=== PATIENT | male | born 1970 | race Caucasian/White ===

== ENCOUNTER 2017-05-05 10:49 | Emergency (ER) | payer MEDICAID, OTHER ==
[~2017-05-05] VITALS: Ht 175.3 cm; Wt 84.0 kg
[~2017-05-05 10:49] MED LIST: CEPH-357 PO; CEPH500C5 PO; CYCL-1 PO; DOXY100C76 PO; ZOF4T PO
[2017-05-05] MEDS ORDERED: NICO-687 TOP (12:12)
[2017-05-05] MEDS ORDERED: GUAI600T45 PO (12:12)
[2017-05-05] MEDS ORDERED: AZIT-57 PO (12:12)
[2017-05-05 12:22] VITALS: BP 140/90
== END 2017-05-05 12:19 | disposition home or self-care (01) ==
LOC: ER 10:50
DX: J04.0 Acute laryngitis (principal); F17.210 Nicotine dependence, cigarettes, uncomplicated; F12.10 Cannabis abuse, uncomplicated; G89.29 Other chronic pain; Z71.6 Tobacco abuse counseling; Z79.899 Other long term (current) drug therapy
CPT/HCPCS: 99283; 99406

== ENCOUNTER 2017-11-21 20:44 | Emergency (ER) | payer MEDICAID ==
[~2017-11-21] VITALS: Ht 175.3 cm; Wt 73.0 kg
[~2017-11-21 20:44] MED LIST changes: -CEPH500C5 PO; +GUAI600T45 PO
[2017-11-21] MEDS ORDERED: LORazepam 2 mg/ml vial IV ONE (21:05)
[2017-11-21 22:15] VITALS: BP 129/80
[2017-11-21] MEDS ORDERED: LORA-269 PO (22:25)
== END 2017-11-21 22:35 | disposition home or self-care (01) ==
LOC: ER 20:45
DX: F41.0 Panic disorder [episodic paroxysmal anxiety] (principal); F12.10 Cannabis abuse, uncomplicated
CPT/HCPCS: 70450; 93005; 96374; 99284; J2060

== ENCOUNTER 2019-10-07 18:25 | Emergency (ER) | payer MEDICAID ==
[~2019-10-07] VITALS: Ht 175.3 cm; Wt 79.5 kg
[~2019-10-07 18:25] MED LIST changes: +LORA-269 PO
[2019-10-07 18:43] VITALS: BP 136/82
--- NOTE | 2019-10-07 21:10 | NUR ---
rafael orourke pa at bedside to talk with pt, pt is very anxious about hospitals, needles etc. "the last time I was here I needed medication",
[2019-10-07] MEDS ORDERED: LIDOcaine 1% W/epiNEPHrine 1:200,000 10ml vial IJ ONE (21:20)
[2019-10-07] MEDS ORDERED: LORazepam 1 MG tablet PO ONE (21:20)
--- NOTE | 2019-10-07 21:30 | NUR ---
pt wants to leave, Kennedy MEEK has explained in length the need to stay and have lac to finger treated, pt refusing ativan, "I just want to leave...I don't want anything done and I don't want ativan", pt verbalized understanding risks of leaving AMA up to and including , willing to sign AMA papers, I also told pt he can return at anytime for treatment. Pt has ride home with his mother
== END 2019-10-07 21:35 | disposition left against medical advice (07) ==
LOC: ER 18:26
DX: S61.211A Laceration without foreign body of left index finger without damage to nail, initial encounter (principal); G89.29 Other chronic pain; F12.90 Cannabis use, unspecified, uncomplicated; Z72.89 Other problems related to lifestyle; Z98.890 Other specified postprocedural states; Z79.899 Other long term (current) drug therapy; W26.8XXA Contact with other sharp object(s), not elsewhere classified, initial encounter; Y93.89 Activity, other specified; Y92.89 Other specified places as the place of occurrence of the external cause; Y99.8 Other external cause status
CPT/HCPCS: 99281